=== PATIENT | female | born 1975 | race Caucasian/White ===

== ENCOUNTER 2020-05-08 19:05 | Emergency (ER) | payer OTHER ==
[2020-05-08 19:13] VITALS: BP 133/72; PULSE 76; TEMP 98; BMI 29.0
[2020-05-08] MEDS ORDERED: KETOROLAC TROMETHAMINE 30 MG/1 ML VIAL IVPUSH ONE (20:44)
[2020-05-08] MEDS ORDERED: SODIUM CHLORIDE 1,000 ML IV STA (20:45)
--- NOTE | 2020-05-08 20:47 | PDOC ---
History of Present Illness - General Chief Complaint: Pain Stated Complaint: VAGINAL PAIN/ LEFT LEG PAIN Time Seen by Provider: 05/08/20 20:40 History Source: Patient - History of Present Illness Timing/Duration: reports: constant, getting worse Quality: reports: severe Abdominal Pain Onset Location: reports: LLQ Pain Radiation: reports: other (to LLE) Past History - Medical History Allergies/Adverse Reactions: Allergies Allergy/AdvReac Type Severity Reaction Status Date / Time No Known Allergies Allergy Verified 05/08/20 19:13 Home Medications: Ambulatory Orders Amoxicillin/Potassium Clav [Augmentin 875-125 Tablet] 1 each PO BID #14 tablet 05/09/20 COPD: No - Reproductive History Is Patient Now?: No - Psycho-Social/Smoking History Smoking History: Current every day smoker Information on smoking cessation initiated: No - Substance Abuse Hx (Audit-C & DAST Scrn) How often the patient has a drink containing alcohol: Monthly or less Score: In Men: 4 or > Positive; In Women: 3 or > Positive: 1 Screen Result (Pos requires Nsg. Audit-10AR): Negative Review of Systems - Review of Systems Constitutional: No: Chills, Fever ABD/GI: Yes: Abdominal cramping. No: Blood Streaked Bowels, Constipated, Diarrhea, Nausea, Rectal Bleeding, Vomiting : No: Dysuria, Discharge, Flank Pain, Hematuria Musculoskeletal: No: Back Pain *Physical Exam - Vital Signs Last Vital Signs Temp Pulse Resp BP Pulse Ox 98 F 76 18 133/72 98 05/08/20 19:09 05/08/20 19:09 05/08/20 19:09 05/08/20 19:09 05/08/20 19:09 - Physical Exam General Appearance: Yes: Appropriately Dressed, Moderate Distress HEENT: positive: Normal Voice Neck: positive: Supple Respiratory/Chest: negative: Respiratory Distress Gastrointestinal/Abdominal: positive: Normal Bowel Sounds, Tender (sig ttp to LLQ), Soft. negative: Distended, Guarding, Rebound Musculoskeletal: negative: CVA Tenderness Integumentary: positive: Dry, Warm Neurologic: positive: Fully Oriented, Alert, Normal Mood/Affect ED Treatment Course - LABORATORY CBC & Chemistry Diagram: 05/08/20 21:40 05/08/20 21:40 - RADIOLOGY Radiology Studies Ordered: Category Date Time Status ABDOMEN & PELVIS CT WITH CONTR [CT] Stat CT Scan 05/08/20 20:45 Ordered Medical Decision Making - Medical Decision Making 05/08/20 20:45 44-year-old female, denies any past medical history, here with severe pain to LLQ since yesterday, constant and getting worse. Taking Tylenol and Motrin with no relief. No dysuria, hematuria, change in bowel movements, nausea vomiting fever or chills. No history of similar pain. Last menstrual period was normal over a week ago. States she is not sexually active and has not been "for a long time" see exam R/o diverticulitis -pain control -labs -CT 05/08/20 21:19 Signed out to in resident in ER Discharge - Discharge Information Problems reviewed: Yes Clinical Impression/Diagnosis: Diverticulitis Condition: Stable Disposition: HOME - Additional Discharge Information Prescriptions: Amoxicillin/Potassium Clav [Augmentin 875-125 Tablet] 1 each PO BID #14 tablet - Follow up/Referral - Patient Discharge Instructions Patient Printed Discharge Instructions: DI for Diverticulitis Print Language: KOREAN - Post Discharge Activity Work/Back to School Note: Back to Work
[2020-05-08] MEDS ORDERED: KETOROLAC TROMETHAMINE 30 MG/1 ML VIAL ONE (21:15)
[2020-05-08 21:55] LABS: BASO % 0.3 % (0-2.0); EOS % 1.7 % (0-4.5); HEMATOCRIT 35.7 % (32.4-45.2); HEMOGLOBIN 11.8 GM/dL (10.7-15.3); LYMPH % 21.6 % (8-40); MCH 26.1 pg (25.7-33.7); MEAN CELL VOLUME 79.1 fl (80-96); MEAN PLT VOLUME 8.6 fl (7.5-11.1); MONO % 6.9 % (3.8-10.2); NEUT % 69.5 % (42.8-82.8); PLATELET COUNT 260 K/MM3 (134-434); RBC 4.52 M/mm3 (3.60-5.2); RDW 15.9 % (11.6-15.6); WHITE BLOOD COUNT 12.2 K/mm3 (4.0-10.0)
[2020-05-08 22:01] LABS: HCG,QUALITATIVE URINE Negative
[2020-05-08 22:03] LABS: EPI CELLS >36 /uL (0-25.1); HYALINE CASTS 0 /uL (0-3.1); PH,URINE 5.5 (5.0-8.0); URINE APPEARANCE CLOUDY; URINE BACTERIA 483 /uL (0-1359); URINE BILIRUBIN NEGATIVE (NEGATIVE); URINE COLOR YELLOW; URINE GLUCOSE (UA) NEGATIVE (NEGATIVE); URINE KETONE NEGATIVE (NEGATIVE); URINE LEUK ESTERASE NEGATIVE (NEGATIVE); URINE NITRITE NEGATIVE (NEGATIVE); URINE PROTEIN NEGATIVE (NEGATIVE); URINE RBC 42 /uL (0-23.9); URINE UROBILINOGEN 0.2 mg/dL (0.2-1.0); URINE WBC 3 /uL (0-25.8)
[2020-05-08 22:22] LABS: ALBUMIN 3.5 g/dl (3.4-5.0); BILIRUBIN,TOTAL 0.2 mg/dL (0.2-1); CALCIUM 8.7 mg/dL (8.5-10.1); CREATININE 0.8 mg/dL (0.55-1.3); POTASSIUM 4.3 mmol/L (3.5-5.1); TOT PROT 6.8 g/dl (6.4-8.2)
--- NOTE | 2020-05-08 23:31 | PDOC ---
*Physical Exam - Vital Signs Last Vital Signs Temp Pulse Resp BP Pulse Ox 98 F 76 18 133/72 98 05/08/20 19:09 05/08/20 19:09 05/08/20 19:09 05/08/20 19:09 05/08/20 19:09 ED Treatment Course - LABORATORY CBC & Chemistry Diagram: 05/08/20 21:40 05/08/20 21:40 - ADDITIONAL ORDERS Additional order review: Laboratory Results 05/08/20 05/08/20 21:40 21:40 Sodium 140 Potassium 4.3 Chloride 107 Carbon Dioxide 28 Anion Gap 5 L BUN 7.0 Creatinine 0.8 Est GFR (CKD-EPI)AfAm 103.92 Est GFR (CKD-EPI)NonAf 89.66 Random Glucose 86 Calcium 8.7 Total Bilirubin 0.2 AST 14 L ALT 16 Alkaline Phosphatase 73 Total Protein 6.8 Albumin 3.5 Lipase 108 Urine Color Yellow Urine Appearance Cloudy Urine pH 5.5 Ur Specific [place] 1.013 Urine Protein Negative Urine Glucose (UA) Negative Urine Ketones Negative Urine Blood 1+ H Urine Nitrite Negative Urine Bilirubin Negative Urine Urobilinogen 0.2 Ur Leukocyte Esterase Negative Urine WBC (Auto) 3 Urine RBC (Auto) 42 Urine Casts (Auto) 0 U Epithel Cells (Auto) >36 Urine Bacteria (Auto) 483 Urine HCG, Qual Negative 05/08/20 21:40 RBC 4.52 MCV 79.1 L MCHC 33.0 RDW 15.9 H MPV 8.6 Neutrophils % 69.5 Lymphocytes % 21.6 Monocytes % 6.9 Eosinophils % 1.7 Basophils % 0.3 - Medications Given in the ED: ED Medications Discontinued Medications Generic Name Dose Route Start Last Admin Trade Name Freq PRN Reason Stop Dose Admin Sodium Chloride 1,000 mls @ 1,000 mls/hr 05/08/20 20:45 05/08/20 21:45 Normal Saline - IV 05/08/20 21:44 1,000 mls/hr ASDIR STA Administration Ketorolac Tromethamine 30 mg 05/08/20 20:44 05/08/20 21:45 Toradol Injection - IVPUSH 05/08/20 20:45 30 mg ONCE ONE Administration Medical Decision Making - Medical Decision Making Pt signed out. 44-year-old female, denies any past medical history, here with severe pain to LLQ since yesterday, constant and getting worse. Taking Tylenol and Motrin with no relief. No dysuria, hematuria, change in bowel movements, nausea vomiting fever or chills. R/o diverticulitis 05/08/20 23:31 CT A/P with IV contrast: Moderate acute diverticulitis of the distal descending colon. No evidence for perforation or abscess. No evidence for appendicitis, small bowel obstruction, free fluid, or free air. Will give IV Unasyn. Plan to discharge with PO Augmentin. 05/09/20 01:05 Patient stable for discharge. Informed of all lab and imaging results. Given follow up instructions and strict return precautions. Patient expressed understanding and agree to plan. 05/09/20 03:10 Discharge - Discharge Information Problems reviewed: Yes Clinical Impression/Diagnosis: Diverticulitis Condition: Stable Disposition: HOME - Admission No - Additional Discharge Information Prescriptions: Amoxicillin/Potassium Clav [Augmentin 875-125 Tablet] 1 each PO BID #14 tablet - Follow up/Referral - Patient Discharge Instructions Patient Printed Discharge Instructions: DI for Diverticulitis Print Language: INDONESIAN - Post Discharge Activity Work/Back to School Note: Back to Work
--- NOTE | 2020-05-09 00:38 | PDOC ---
*Physical Exam - Vital Signs Last Vital Signs Temp Pulse Resp BP Pulse Ox 98 F 76 18 133/72 98 05/08/20 19:09 05/08/20 19:09 05/08/20 19:09 05/08/20 19:09 05/08/20 19:09 ED Treatment Course - LABORATORY CBC & Chemistry Diagram: 05/08/20 21:40 05/08/20 21:40 - ADDITIONAL ORDERS Additional order review: Laboratory Results 05/08/20 05/08/20 21:40 21:40 Sodium 140 Potassium 4.3 Chloride 107 Carbon Dioxide 28 Anion Gap 5 L BUN 7.0 Creatinine 0.8 Est GFR (CKD-EPI)AfAm 103.92 Est GFR (CKD-EPI)NonAf 89.66 Random Glucose 86 Calcium 8.7 Total Bilirubin 0.2 AST 14 L ALT 16 Alkaline Phosphatase 73 Total Protein 6.8 Albumin 3.5 Lipase 108 Urine Color Yellow Urine Appearance Cloudy Urine pH 5.5 Ur Specific [place] 1.013 Urine Protein Negative Urine Glucose (UA) Negative Urine Ketones Negative Urine Blood 1+ H Urine Nitrite Negative Urine Bilirubin Negative Urine Urobilinogen 0.2 Ur Leukocyte Esterase Negative Urine WBC (Auto) 3 Urine RBC (Auto) 42 Urine Casts (Auto) 0 U Epithel Cells (Auto) >36 Urine Bacteria (Auto) 483 Urine HCG, Qual Negative 05/08/20 21:40 RBC 4.52 MCV 79.1 L MCHC 33.0 RDW 15.9 H MPV 8.6 Neutrophils % 69.5 Lymphocytes % 21.6 Monocytes % 6.9 Eosinophils % 1.7 Basophils % 0.3 - Medications Given in the ED: ED Medications Discontinued Medications Generic Name Dose Route Start Last Admin Trade Name Harpalq PRN Reason Stop Dose Admin Sodium Chloride 1,000 mls @ 1,000 mls/hr 05/08/20 20:45 05/08/20 21:45 Normal Saline - IV 05/08/20 21:44 1,000 mls/hr ASDIR STA Administration Ketorolac Tromethamine 30 mg 05/08/20 20:44 05/08/20 21:45 Toradol Injection - IVPUSH 05/08/20 20:45 30 mg ONCE ONE Administration Medical Decision Making - Medical Decision Making 05/09/20 00:38 Patient Name: OMID SALEH THIS IS A PRELIMINARY REPORT FROM [facility] DATE OF SERVICE:2020-05-08 23:54:52 IMAGES: [id number] EXAM: CT abdomen and pelvis with contrast HISTORY:llq painr/o diverticulitis COMPARISON: None. FINDINGS: Atelectasis and scarring in lung bases. No pleural effusions. Small hiatal hernia. The liver, gallbladder, pancreas, adrenal glands, and spleen are unremarkable. No renal or urinary calculi. No AAA. *Moderate acute diverticulitis of the distal descending colon. No evidence for perforation or abscess. No evidence for appendicitis, small bowel obstruction, free fluid, or free air. 05/09/20 04:41 Pt has no nausea and no vomiting. Pt has LLQ pain. She will get a dose of unasyn here and home with augmentin. Return for worsening pain Discharge - Discharge Information Problems reviewed: Yes Clinical Impression/Diagnosis: Diverticulitis Condition: Stable Disposition: HOME - Additional Discharge Information Prescriptions: Amoxicillin/Potassium Clav [Augmentin 875-125 Tablet] 1 each PO BID #14 tablet - Follow up/Referral - Patient Discharge Instructions Patient Printed Discharge Instructions: DI for Diverticulitis Print Language: NORWEGIAN - Post Discharge Activity Work/Back to School Note: Back to Work
[2020-05-09] MEDS ORDERED: AMPICILLIN NA/SULBACTAM NA 1.5 GM in SODIUM CHLORIDE 100 ML IVPB ONE (00:39)
== END 2020-05-09 01:55 | disposition home or self-care (01) ==
LOC: JER 19:05
DX: S93.401A Sprain of unspecified ligament of right ankle, initial encounter (principal)
CPT/HCPCS: 36415; 74177-TC; 80053; 81003; 83690; 84703; 85025; 99284-25; Q9967